=== PATIENT | female | born 1995 | race Caucasian/White ===

== ENCOUNTER 2021-12-08 23:46 | Emergency (ER) | payer SELFPAY ==
[2021-12-09] MEDS ORDERED: PEPCID20 MG PO (01:43)
[2021-12-09] MEDS ORDERED: ZYRTEC10 MG PO (01:43)
[2021-12-09] MEDS ORDERED: PREDNISONE 20 M20 MG PO (01:43)
== END 2021-12-09 02:15 | disposition home or self-care (01) ==
LOC: ER1 23:46
DX: T65.6X1A Toxic effect of paints and dyes, not elsewhere classified, accidental (unintentional), initial encounter (principal); L23.4 Allergic contact dermatitis due to dyes; Z88.0 Allergy status to penicillin
CPT/HCPCS: 96374; 96375; 99282; J2930